=== PATIENT | female | born 1990 | race Caucasian/White ===

== ENCOUNTER 2016-12-26 11:01 | Outpatient (CLI) | payer MEDICAID ==
[2016-12-26 11:26] VITALS: BP 140/68; PULSE 148; RESP 18; TEMP 97.7
[2016-12-26] MEDS ORDERED: LACTATED RINGERS 1,000 ML IV SCH (11:45)
[2016-12-26 11:51] LABS: Appearance,Urine Clear (Clear); Bacteria,Urine Rare /hpf; Bilirubin,Urine Negative (Negative); Glucose,Urine (UA) Negative (Negative); Ketones,Urine Negative (Negative); Leukocyte Esterase,Urine Trace (Negative); Nitrite,Urine Negative (Negative); Particle Count 2151; Protein,Urine Negative (Negative); Specific Gravity,Urine 1.005 (1.001-1.035); Squamous Epithelial Cell,Urine 1 /hpf (0-4); UA Billing (MACRO vs. MICRO) MICRO; Urobilinogen,Urine <2.0 mg/dL (<2.0); WBC,Urine 1 /hpf (0-5)
--- NOTE | 2017-01-13 16:18 | P.MSEPDOC ---
Presenting Problems - Arrival Data Date of Arrival on Unit: 12/26/16 Time of Arrival on Unit: 11:05 Mode of Transport: Ambulatory - Complaint OB-Reason for Admission/Chief Complaint: PIH Comment: visual disturbance, headache, nausea vomitting x days Medical History - Information : 2 Para: 1 Term: 1 : 0 Abortions: Spontaneous or Elective: 0 Number of Living Children: 1 - Gestational Age Gestational Age by EM (wks/days): 22 Weeks and 2 Days Review of Systems - Review of Systems Constitutional: No problems Breast: No problems ENT: No problems Cardiovascular: No problems Respiratory: No problems Gastrointestinal: No problems Genitourinary: No problems Musculoskeletal: No problems Neurological: No problems, Dizziness Skin: No problems Vital Signs - Temperature Temperature: 97.7 F Temperature Source: Temporal Artery Scan - Pulse Right Pulse Rate: 148 Pulse Assessment Method: Automatic Cuff - Respirations Respiratory Rate: 18 Oxygen Delivery Method: Room Air O2 Sat by Pulse Oximetry: 97 - Blood Pressure Right Arm Blood Pressure: 140/68 Blood Pressure Mean: 92 Blood Pressure Source: Automatic Cuff Medical Screen Scoring (Pre) - Cervical Exam Dilation: Exam Deferred Effacement: Exam Deferred Membranes: Intact - Uterine Contractions Frequency: N/A - Maternal Vital Signs Maternal Temperature: N/A Maternal Blood Pressure: N/A Signs of Preeclampsia: Headache = 1, Nausea/Vomiting = 1, Visual Disturbance = 1 Maternal Respirations: N/A - Maternal Trauma Maternal Trauma: N/A - Assessment Heart Rate - NICHD Category: Category I (Normal) = 0 - Total Score Total Score (Pre): 3 - Level of Risk Level of Risk: Low (0-5) Physician Notification (Post) - Physician Notified Physician/Practitioner Notified:: Deepika New Order Received: Yes (d/c follow up in office next week) - Notification Comment Comment: IV hydrate, normal ua, headache improved, b/p improved Disposition - Disposition OB Disposition: Discharge to home, Written follow up instructions reviewed Discharge Date: 12/26/16 Discharge Time: 12:30 I agree with the RN Medical Screening Exam: No Risk & Benefit of care provided described in d/c instruction: No Diagnosis: 22 WEEKS GESTATION OF
== END 2016-12-26 12:30 | disposition home or self-care (01) ==
LOC: MERGE 11:01 → FBPOP 11:01
PROVIDERS: ATTEND Obstetrics & Gynecology
DX: O13.4 Gestational [pregnancy-induced] hypertension without significant proteinuria, complicating childbirth (principal); Z3A.22 22 weeks gestation of pregnancy
CPT/HCPCS: 81001; 96360; 99215

== ENCOUNTER → 2017-01-09 | Outpatient (CLI) | payer MEDICAID ==
[2017-01-09 10:43] LABS: CH 30.5; CHCM 33.1; HCT 35.9 % (34.0-46.0); HDW 2.88; MCH 30.9 pg (25.0-35.0); MCHC 33.4 g/dL (31.0-37.0); MCV 92.6 fL (80.0-100.0); Mean Platelet Volume 6.3; RBC 3.87 m/uL (3.80-5.40); RDW 14.9 % (11.5-15.5); WBC 11.1 k/uL (3.8-10.6)
[2017-01-09 11:07] LABS: Uric Acid 4.3 mg/dL (3.7-7.4)
== END | disposition home or self-care (01) ==
LOC: LABWHC1 09:47
PROVIDERS: ATTEND Obstetrics & Gynecology Obstetrics
DX: O99.89 Other specified diseases and conditions complicating pregnancy, childbirth and the puerperium (principal); R03.0 Elevated blood-pressure reading, without diagnosis of hypertension; Z3A.00 Weeks of gestation of pregnancy not specified
CPT/HCPCS: 36415; 81050; 82575; 84156; 84450; 84460; 84550; 85027

== ENCOUNTER → 2017-01-30 | Outpatient (CLI) | payer MEDICAID | END | disposition home or self-care (01) | LOC: LABWHC1 08:56 | PROVIDERS: ATTEND Obstetrics & Gynecology Obstetrics | DX: Z34.80 Encounter for supervision of other normal pregnancy, unspecified trimester (principal) | CPT/HCPCS: 36415; 82950 ==

== ENCOUNTER 2017-04-09 14:25 | Outpatient (CLI) | payer MEDICAID ==
[2017-04-09 15:23] VITALS: BP 133/75; PULSE 136; RESP 16; TEMP 98.5
--- NOTE | 2017-05-28 10:42 | P.MSEPDOC ---
Presenting Problems - Arrival Data Date of Arrival on Unit: 04/09/17 Time of Arrival on Unit: 14:26 Mode of Transport: Ambulatory Medical History - Information : 2 Para: 1 Term: 1 : 0 Abortions: Spontaneous or Elective: 0 Number of Living Children: 1 - Gestational Age Gestational Age by EM (wks/days): 35 Weeks and 6 Days Vital Signs - Temperature Temperature: 98.5 F Temperature Source: Oral - Pulse Right Brachial Pulse Rate: 136 Pulse Assessment Method: Automatic Cuff - Respirations Respiratory Rate: 16 Oxygen Delivery Method: Room Air O2 Sat by Pulse Oximetry: 97 - Blood Pressure Right Arm Blood Pressure: 133/75 Blood Pressure Mean: 94 Blood Pressure Source: Automatic Cuff Medical Screen Scoring (Post) - Cervical Exam Dilation: 1-3 cm = 1 Effacement: More than 50% = 2 Membranes: Intact - Uterine Contractions Frequency: > 5 minutes apart = 1 Duration: N/A Intensity: N/A - Maternal Vital Signs Maternal Temperature: N/A Maternal Blood Pressure: N/A Signs of Preeclampsia: N/A Maternal Respirations: N/A - Pain Assessment Pain Scale Used: Numeric (1 - 10) Pain Intensity: 0 Pain Management Goal: 0 Pain Behavior: None Exhibited - Maternal Trauma Maternal Trauma: N/A - Assessment Heart Rate: 165 Heart Rate - NICHD Category: Category I (Normal) = 0 NST: Reactive Position: N/A - Total Score Total Score (Post): 4 - Post Treatment Level of Risk Post Treatment Level of Risk: Low (0-5) Physician Notification (Post) - Physician Notified Physician Notified Date: 04/09/17 Physician Notified Time: 15:23 Physician/Practitioner Notified:: Dr Wing Spoke With: Dr Wing New Order Received: Yes - Notification Comment Comment: pt may be discharged home Disposition - Disposition OB Disposition: Discharge to home Discharge Date: 04/09/17 Discharge Time: 15:23 I agree with the RN Medical Screening Exam: Yes Risk & Benefit of care provided described in d/c instruction: Yes Diagnosis: FALSE LABOR BEFORE 37 COMPLETED WEEKS OF GEST, THIRD TRI
== END 2017-04-09 15:37 | disposition home or self-care (01) ==
LOC: FBPOP 14:25
PROVIDERS: ATTEND Obstetrics & Gynecology
DX: O47.03 False labor before 37 completed weeks of gestation, third trimester (principal); Z3A.35 35 weeks gestation of pregnancy
CPT/HCPCS: 59025; 84112; 99213

== ENCOUNTER 2017-04-25 18:52 | Outpatient (CLI) | payer OTHER ==
[2017-04-25] MEDS ORDERED: LACTATED RINGERS 1,000 ML IV ONE (20:30)
[2017-04-25 20:44] VITALS: BP 129/79; PULSE 141; RESP 18; TEMP 98.7
--- NOTE | 2017-06-25 09:17 | P.MSEPDOC ---
Presenting Problems - Arrival Data Date of Arrival on Unit: 04/25/17 Time of Arrival on Unit: 18:52 Mode of Transport: Ambulatory - Complaint OB-Reason for Admission/Chief Complaint: Possible Onset of Labor Comment: contractions getting stronger and more regular since 1629 Medical History - Information : 2 Para: 1 Term: 1 : 0 Abortions: Spontaneous or Elective: 0 Number of Living Children: 1 - Gestational Age Gestational Age by EM (wks/days): 38 Weeks and 1 Days Review of Systems - Review of Systems Constitutional: No problems Breast: No problems ENT: No problems Cardiovascular: No problems Respiratory: No problems Gastrointestinal: No problems Genitourinary: No problems Musculoskeletal: No problems Neurological: No problems Skin: No problems Vital Signs - Temperature Temperature: 98.7 F Temperature Source: Temporal Artery Scan - Pulse Right Brachial Pulse Rate: 141 Pulse Assessment Method: Automatic Cuff - Respirations Respiratory Rate: 18 Oxygen Delivery Method: Room Air - Blood Pressure Right Arm Blood Pressure: 129/79 Blood Pressure Mean: 95 Blood Pressure Source: Automatic Cuff Medical Screen Scoring (Pre) - Cervical Exam Dilation: 4-7 cm = 2 Effacement: More than 50% = 2 Membranes: Intact - Uterine Contractions Frequency: > 5 minutes apart = 1 Duration: N/A Intensity: N/A - Maternal Vital Signs Maternal Temperature: N/A Maternal Blood Pressure: N/A Signs of Preeclampsia: N/A Maternal Respirations: N/A - Pain Assessment Pain Location and Character: Abdomen Pain Scale Used: Numeric (1 - 10) Pain Intensity: 5 Pain Description: *Acute Pain Radiation Location: none Pain Frequency: Intermittent Pain Duration: 3 Pain Duration Units: Hours Pain Behavior: Vocalization - Maternal Trauma Maternal Trauma: N/A - Assessment Baseline FHR: 160 Heart Rate - NICHD Category: Category I (Normal) = 0 NST: Reactive Position: N/A Station: N/A - Total Score Total Score (Pre): 5 - Level of Risk Level of Risk: Low (0-5) Physician Notification (Pre) - Physician Notified Physician Notified Date: 04/25/17 Physician Notified Time: 19:25 Physician/Practitioner Notifed:: Dr. Godfrey Spoke With: Dr. Godfrey New Order Received: Yes - Notification Comment Comment: recheck cervix in one hour, if no change may discharge home Medical Screen Scoring (Post) - Cervical Exam Dilation: 4-7 cm = 2 Effacement: More than 50% = 2 Membranes: Intact - Uterine Contractions Frequency: > 5 minutes apart = 1 Duration: > 40 seconds = 2 Intensity: N/A - Maternal Vital Signs Maternal Temperature: N/A Maternal Blood Pressure: N/A Signs of Preeclampsia: N/A Maternal Respirations: N/A - Pain Assessment Pain Location and Character: Abdomen Pain Scale Used: Numeric (1 - 10) Pain Intensity: 3 Pain Description: *Acute Pain Radiation Location: none Pain Frequency: Intermittent Pain Duration: 60 Pain Duration Units: Minutes Pain Behavior: Vocalization - Maternal Trauma Maternal Trauma: N/A - Assessment Heart Rate: 160 Heart Rate - NICHD Category: Category I (Normal) = 0 NST: Reactive Position: N/A Station: N/A - Total Score Total Score (Post): 7 Physician Notification (Post) - Physician Notified Physician Notified Date: 04/25/17 Physician Notified Time: 20:19 Physician/Practitioner Notified:: Dr. Godfrey Spoke With: Dr. Godfrey New Order Received: Yes - Notification Comment Comment: hydrate pt with bolus of 1 liter of LR I agree with the RN Medical Screening Exam: Yes Risk & Benefit of care provided described in d/c instruction: Yes Diagnosis: FALSE LABOR AT OR AFTER 37 COMPLETED WEEKS OF GESTATION
== END 2017-04-25 21:13 | disposition home or self-care (01) ==
LOC: FBPOP 18:52
PROVIDERS: ATTEND Obstetrics & Gynecology Obstetrics
DX: O47.1 False labor at or after 37 completed weeks of gestation (principal); Z3A.38 38 weeks gestation of pregnancy
CPT/HCPCS: 59025; 96360; G0463; 99214

== ENCOUNTER 2017-04-27 13:22 | Inpatient (IN) | payer OTHER ==
[2017-04-27] MEDS ORDERED: METHYLERGONOVINE 0.2 MG/ML 1 ML AMP IM PRN (14:07)
[2017-04-27] MEDS ORDERED: OXYTOCIN 10 UNIT/ML 1 ML VIAL IM PRN (14:07)
[2017-04-27] MEDS ORDERED: CARBOPROST TROMETHAMINE 250 MCG/ML 1 ML AMP IM PRN (14:07)
[2017-04-27] MEDS ORDERED: TERBUTALINE 1 MG/ML VIAL SQ PRN (14:07)
[2017-04-27] MEDS ORDERED: LIDOCAINE 1% (PF) 10 MG/ML (30 ML SDV) SQ PRN (14:07)
[2017-04-27] MEDS ORDERED: OXYTOCIN 20 UNITS/1000 ML NS 1,000 ML IV SCH ×2 (14:15→21:00)
[2017-04-27 14:36] VITALS: BMI 33.4
[2017-04-27] MEDS: LACTATED RINGERS 1,000 ML IV SCH ×2 (14:42→18:36)
[2017-04-27 14:50] LABS: Basophils % (A) 0 %; Eosinophils # (A) 0.1 k/uL (0-0.7); Eosinophils % (A) 1 %; HCT 36.8 % (34.0-46.0); HGB 12.9 gm/dL (11.4-16.0); Lymphocytes # (A) 1.3 k/uL (1.0-4.8); Lymphocytes % (A) 15 %; MCHC 35.2 g/dL (31.0-37.0); MCV 90.8 fL (80.0-100.0); Mean Platelet Volume 6.6; Monocytes # (A) 0.5 k/uL (0-1.0); Monocytes % (A) 6 %; Neutrophils # (A) 6.6 k/uL (1.3-7.7); Neutrophils % (A) 77 %; Platelet Count 284 k/uL (150-450); RBC 4.05 m/uL (3.80-5.40); RDW 15.5 % (11.5-15.5); WBC 8.6 k/uL (3.8-10.6)
[2017-04-27] MEDS ORDERED: fentaNYL (PF) 50 MCG/ML 5 ML AMP ONE (18:20)
[2017-04-27] MEDS ORDERED: SODIUM CHLORIDE 0.9% 100 ML BAG ONE (18:20)
[2017-04-27] MEDS ORDERED: BUPIVACAINE (PF) 0.25% 30 ML VIAL ONE (18:20)
[2017-04-27] MEDS ORDERED: BUPIVACAINE (PF) 0.25% 25 ML, fentaNYL (PF) 200 MCG in SODIUM CHLORIDE 0.9% 71 ML EPIDURAL ONE (19:11)
--- NOTE | 2017-04-27 20:20 | P.HPOB ---
History of Present Illness H&P Date: 04/27/17 Chief Complaint: Spontaneous rupture of membranes This is a 27-year-old 2 para 1001 woman with an estimated due date of who presents at 38 weeks gestation with spontaneous rupture of membranes. Her has been uncomplicated. She had a gush of clear fluid at approximately 1 PM. She presented to labor and delivery triage where rupture of membranes was confirmed. She was found to be 3+ centimeters dilated however not actively steve. Obstetric history is significant for a previous normal spontaneous vaginal delivery in 2014 complicated by -induced hypertension. This is a 8 lbs. 6 oz. female infant. She has not had hypertension with this . Laboratory data: Blood type O positive, antibody screen negative, rubella immune , VDRL nonreactive, hepatitis B surface antigen negative, HIV negative, group B strep negative, glucose tolerance testing within normal limits. Review of Systems All systems: negative Past Medical History Past Medical History: No Reported History Additional Past Medical History / Comment(s): gestational HTN with previous History of Any Multi-Drug Resistant Organisms: None Reported Additional Past Surgical History / Comment(s): carpal tunnel left wrist Past Anesthesia/Blood Transfusion Reactions: No Reported Reaction Past Psychological History: Anxiety, No Psychological Hx Reported Smoking Status: Never smoker Past Alcohol Use History: None Reported Past Drug Use History: None Reported - Past Family History Father Family Medical History: Hypertension Mother Family Medical History: Hypertension Medications and Allergies Home Medications Medication Instructions Recorded Confirmed Type Phc-Fmje-Vvacr Acid 1 each PO DAILY 10/17/13 04/27/17 History [-U Capsule] Ferrous Sulfate [Iron] 325 mg PO DAILY 04/25/17 04/27/17 History Allergies Allergy/AdvReac Type Severity Reaction Status Date / Time No Known Allergies Allergy Verified 04/27/17 13:38 Exam - Vital Signs Vital signs: Vital Signs Temp Pulse Resp BP Pulse Ox 04/27/17 14:32 98.6 F 126 H 16 141/82 98 04/27/17 14:06 98.6 F 129 H 16 141/82 98 04/27/17 14:00 98.6 F 129 H 16 141/82 Intake and Output 04/27/17 04/27/17 04/27/17 06:59 14:59 22:59 Other: Weight 91.172 kg Patient Weight 04/28/17 06:59 Weight 91.172 kg Upon my initial evaluation patient is resting comfortably with an epidural anesthetic. Her cervix is completely dilated and the vertex is in the 0 station. heart tones are reassuring by external monitoring. She is steve every 3 minutes. Results Result Diagrams: 04/27/17 14:30 Assessment and Plan (1) Spontaneous rupture of membranes Current Visit: Yes Status: Acute Code(s): NBJ4128 - SNOMED Code(s): 593755447 (2) 38 weeks gestation of Current Visit: Yes Status: Acute Code(s): Z3A.38 - 38 WEEKS GESTATION OF SNOMED Code(s): 25822866 Plan: This is a 27-year-old 2 para 1 woman who presents at 38+ weeks gestation with spontaneous rupture of membranes. Labor has been induced with Pitocin and she is comfortable with an epidural. She is currently completely dilated and will commenced pushing. status is reassuring by external monitoring. I anticipate normal spontaneous vaginal delivery.
[2017-04-27] MEDS ORDERED: HYDROCORTISONE 2.5% RECTAL CREAM 30 GM TUBE RECTAL PRN (20:57)
[2017-04-27] MEDS ORDERED: SIMETHICONE 80 MG CHEWABLE PO PRN (20:57)
[2017-04-27] MEDS ORDERED: LANOLIN CREAM 5 GM TUBE TOPICAL PRN (20:57)
[2017-04-27] MEDS ORDERED: BENZOCAINE/MENTHOL SPRAY 1 GM/SPRAY AEROSOL TOPICAL PRN (20:57)
[2017-04-27] MEDS ORDERED: WITCH HAZEL 1 EACH MED..PAD TOPICAL PRN (20:57)
[2017-04-27] MEDS ORDERED: ZOLPIDEM 5 MG TAB PO PRN (20:57)
[2017-04-27] MEDS ORDERED: ACETAMINOPHEN TAB 325 MG TAB PO PRN (20:57)
[2017-04-27] MEDS ORDERED: diphenhydrAMINE 25 MG CAP PO PRN (20:57)
[2017-04-27] MEDS ORDERED: Acetaminophen-Codeine 300-30mg TAB PO PRN (20:57)
[2017-04-27] MEDS ORDERED: diphenhydrAMINE 50 MG CAP PO PRN (20:57)
[2017-04-27] MEDS ORDERED: diphenhydrAMINE 50 MG/ML 1 ML VIAL IVP PRN ×2 (20:57)
--- NOTE | 2017-04-27 20:57 | P.PROBDLV ---
Vaginal Delivery Note - . Vaginal Delivery Note: Findings: Male infant in the vertex right occiput anterior position with Apgars of 9 at 1 minute and 9 at 5 minutes weighing 8 lbs. 10 oz., 3905 g. Intact, three-vessel cord placenta. Left labial laceration and first-degree perineal laceration. EBL 150 mL's. Delivery summary: This is a 27 year old 2 para 1 woman who presented at 38-3/7 weeks gestation with spontaneous rupture of membranes. Following admission Pitocin induction of labor was undertaken. She did progress from 3 cm to 6+ centimeters at which time she received an epidural anesthetic. Rupture of membranes was at approximately 1300 and she reached complete cervical dilation by 2005. She had pelvic pressure and urge to push. heart tones were stable throughout the first stage of labor. After an approximately 30 minute second stage of labor the head was at which time she was repositioned, prepped and draped in the dorsal modified were Edie position. With additional maternal effort the head delivered from the right occiput anterior position. The nose and mouth were bulb suctioned. The anterior followed by the posterior shoulders were delivered without difficulty. The rest the infant was delivered onto the field and placed onto the maternal abdomen. The cord was clamped and cut. Apgars were 9 at 1 minute and 9 at 5 minutes and weight was 8 lbs. 10 oz. The perineum was inspected and an asymmetrical first-degree perineal laceration was noted. There was a split in the left labia on adjacent to the clitoral araujo. Both areas were infused with lidocaine. These were repaired with 3-0 Vicryl suture. The rest the vagina was inspected and no further lacerations were noted. An intact, three- vessel cord placenta was delivered after an approximately 6 minute third stage of labor. The uterus was massaged and was noted to be firm. EBL was approximately 150 mL's. Patient received Pitocin following delivery of the placenta. Both mother and infant were doing well post delivery in the room. All counts were correct.
[2017-04-27] MEDS: IBUPROFEN 600 MG TAB PO PRN (21:20)
[2017-04-28] MEDS: IBUPROFEN 600 MG TAB PO PRN ×4 (04:38→23:39)
[2017-04-28] MEDS: SENNOSIDES-DOCUSATE SODIUM 1 EACH TAB PO SCH ×2 (07:56→21:46)
--- NOTE | 2017-04-28 10:02 | P.PNOBGVD ---
Subjective - Subjective Principal diagnosis: PPD 1 Interval history: Pt is doing well . she is ambulating and voiding without difficulty, no n/v and is tolerating a regular diet. she states lochia is moderate. pain is controlled with oral medications. she does desire circumcision for her son. Patient reports: Reports appetite normal, Reports voiding normally, Reports pain well controlled, Reports ambulating normally : doing well Objective - Latest Vital Signs Latest vital signs: Vital Signs Temp Pulse Resp BP Pulse Ox 04/28/17 04:00 97.6 F 92 16 135/76 04/28/17 00:00 95 16 111/54 04/27/17 22:51 111 H 16 124/57 04/27/17 22:21 110 H 16 118/58 04/27/17 21:51 112 H 16 130/76 04/27/17 21:36 100 16 130/61 04/27/17 21:21 106 H 16 135/64 04/27/17 21:06 111 H 16 132/63 04/27/17 20:51 97.5 F L 112 H 124/57 04/27/17 14:32 98.6 F 126 H 16 141/82 98 04/27/17 14:06 98.6 F 129 H 16 141/82 98 04/27/17 14:00 98.6 F 129 H 16 141/82 Intake and Output 04/27/17 04/28/17 04/28/17 22:59 06:59 14:59 Other: # Voids 0 1 - Exam Extremities: Present: normal Abdomen: Present: normal appearance Uterus: Present: firm Assessment and Plan (1) 38 weeks gestation of Current Visit: Yes Status: Acute Code(s): Z3A.38 - 38 WEEKS GESTATION OF SNOMED Code(s): 98859763 (2) Spontaneous rupture of membranes Current Visit: Yes Status: Acute Code(s): [id number] - SNOMED Code(s): 095853434 (3) Normal spontaneous vaginal delivery Narrative/Plan: doing well post . will continue routine post care, and plan for d/c tomorrow am Current Visit: No Status: Acute Code(s): O80 - ENCOUNTER FOR FULL-TERM UNCOMPLICATED DELIVERY SNOMED Code(s): 22593114
[2017-04-29 01:09] VITALS: RESP 16
[2017-04-29] MEDS: IBUPROFEN 600 MG TAB PO PRN (06:13)
[2017-04-29] MEDS: SENNOSIDES-DOCUSATE SODIUM 1 EACH TAB PO SCH (07:46)
[2017-04-29 07:52] VITALS: BP 131/73; PULSE 90; TEMP 98
--- NOTE | 2017-04-29 08:26 | P.DS ---
Providers Date of admission: 04/27/17 13:49 Expected date of discharge: 04/29/17 Attending physician: Jyoti Godfrey Primary care physician: Stated None - Discharge Diagnosis(es) (1) 38 weeks gestation of Current Visit: Yes Status: Acute (2) Spontaneous rupture of membranes Current Visit: Yes Status: Acute (3) Normal spontaneous vaginal delivery Current Visit: No Status: Acute Hospital Course: This is a very pleasant 27-year-old 2 para 1001 at 38-3/7 weeks that presented to labor and delivery on 116 with spontaneous rupture of membranes. On initial physical exam she was 3 cm dilated. She was noted to labor and delivery and Pitocin augmentation of labor was started. She progressed through labor eventually getting an epidural and having a spontaneous vaginal delivery of a viable male infant. time of the was 2035, weight of 8 lbs. 10 oz., Apgars of 9 and 9 at one and 5 minutes respectively. Next Patient's course has been uneventful. By day #2 she is ambulating and voiding without difficulty she is tolerating a regular diet without nausea or vomiting. Her lochia is moderate. She states she is breast- feeding without difficulty. She desires discharge home. Plan - Discharge Summary Discharge Rx Participant: No New Discharge Prescriptions: No Action Imv-Nmza-Rcuck Acid [-U Capsule] 1 tab PO DAILY Ferrous Sulfate [Iron] 325 mg PO DAILY Discharge Medication List Wjg-Tble-Kwwjk Acid [-U Capsule] 1 tab PO DAILY 10/17/13 [ History] Ferrous Sulfate [Iron] 325 mg PO DAILY 04/25/17 [History] Follow up Appointment(s)/Referral(s): Jyoti Godfrey DO [Doctor of Osteopathic Medicine] - 4 Weeks Discharge Disposition: HOME SELF-CARE
== END 2017-04-29 12:30 | disposition home or self-care (01) | DRG 775 ==
LOC: FBPOP 13:22 → 4FBP 13:49
PROVIDERS: ADMIT Obstetrics & Gynecology Obstetrics; ATTEND Obstetrics & Gynecology Obstetrics
PROC: 10E0XZZ Delivery of Products of Conception, External Approach (ICD-10-PCS; principal; 2017-04-27)
PROC: 0HQ9XZZ Repair Perineum Skin, External Approach (ICD-10-PCS; 2017-04-27)
PROC: 00HU33Z Insertion of Infusion Device into Spinal Canal, Percutaneous Approach (ICD-10-PCS; 2017-04-27)
PROC: 3E0R3NZ Introduction of Analgesics, Hypnotics, Sedatives into Spinal Canal, Percutaneous Approach (ICD-10-PCS; 2017-04-27)
DX: O70.0 First degree perineal laceration during delivery (principal); Z37.0 Single live birth; Z82.49 Family history of ischemic heart disease and other diseases of the circulatory system; Z86.59 Personal history of other mental and behavioral disorders; Z3A.38 38 weeks gestation of pregnancy
CPT/HCPCS: 59025; 84112; 85025; 88307; 99213

== ENCOUNTER 2018-04-23 14:37 | Emergency (ER) | payer BC, MEDICAID, OTHER ==
[2018-04-23 15:04] VITALS: RESP 18
[2018-04-23] MEDS ORDERED: SODIUM CHLORIDE 0.9% 500 ML 500 ML IV STA (15:42)
--- NOTE | 2018-04-23 15:53 | ED ---
General Adult HPI - General Chief complaint: Chest Pain Stated complaint: Chest tightness Time Seen by Provider: 04/23/18 14:50 Source: patient, RN notes reviewed Mode of arrival: ambulatory Limitations: no limitations - History of Present Illness Initial comments: This is a 28-year-old female presents emergency Department with a past medical history significant for sinus tachycardia. Patient states normally her heart rates between 110 and occasionally gets up to 1:30. Patient states today she comes in because she is feeling some palpitations that last couple of seconds and it takes her breath away for that one or 2 seconds. Patient states this happen multiple times a day and she decided come down to get worked up. Patient denies any thyroid problems. Patient denies any drug use. Patient denies any swelling or calf tenderness. Patient denies any recent fever chills or cough. Patient denies any chest pain. She states her chest is uncomfortable when she feels a palpitation but that's it. Patient denies any lightheadedness dizziness or near syncopal episode. - Related Data Home Medications Medication Instructions Recorded Confirmed Stm-Wzrs-Pwszj Acid 1 tab PO DAILY 10/17/13 04/28/17 [-U Capsule] Ferrous Sulfate [Iron] 325 mg PO DAILY 04/25/17 04/27/17 Allergies Allergy/AdvReac Type Severity Reaction Status Date / Time No Known Allergies Allergy Verified 04/23/18 15:04 Review of Systems ROS Statement: Those systems with pertinent positive or pertinent negative responses have been documented in the HPI. ROS Other: All systems not noted in ROS Statement are negative. Past Medical History Past Medical History: No Reported History Additional Past Medical History / Comment(s): gestational HTN with previous History of Any Multi-Drug Resistant Organisms: None Reported Additional Past Surgical History / Comment(s): carpal tunnel left wrist Past Anesthesia/Blood Transfusion Reactions: No Reported Reaction Past Psychological History: Anxiety Smoking Status: Never smoker Past Alcohol Use History: None Reported Past Drug Use History: None Reported - Past Family History Father Family Medical History: Hypertension Mother Family Medical History: Hypertension General Exam - General Exam Comments Initial Comments: GENERAL: Patient is well-developed and well-nourished. Patient is nontoxic and well- hydrated and is in no acute distress. ENT: Neck is soft and supple. No significant lymphadenopathy is noted. There is no thyroid enlargement and no masses were felt. EYES: The sclera were anicteric and conjunctiva were pink and moist. Extraocular movements were intact and pupils were equal round and reactive to light. Eyelids were unremarkable. PULMONARY: Unlabored respirations. Good breath sounds bilaterally. No audible rales rhonchi or wheezing was noted. CARDIOVASCULAR: There is a regular rate and rhythm without any murmurs gallops or rubs. ABDOMEN: Soft and nontender with normal bowel sounds. No palpable organomegaly was noted. There is no palpable pulsatile mass. SKIN: Skin is clear with no lesions or rashes and otherwise unremarkable. NEUROLOGIC: Patient is alert and oriented x3. Cranial nerves II through XII are grossly intact. Motor and sensory are also intact. Normal speech, volume and content. Symmetrical smile. MUSCULOSKELETAL: Normal extremities with adequate strength and full range of motion. No lower extremity swelling or edema. No calf tenderness. LYMPHATICS: No significant lymphadenopathy is noted PSYCHIATRIC: Normal psychiatric evaluation. Limitations: no limitations Course Vital Signs 04/23/18 04/23/18 15:02 15:49 Temperature 98.1 F Pulse Rate 101 H 90 Respiratory 18 18 Rate Blood Pressure 172/99 125/85 O2 Sat by Pulse 99 100 Oximetry Medical Decision Making - Medical Decision Making EKG shows sinus tachycardia at 108 bpm AR interval 146 dresses 90 QT interval 340 QTC is 455. Patient's EKG shows no ST segment elevation or depression or T wave abnormalities are noted. Patient had some episodes while in the emergency department and on the rhythm strip it showed PACs. - Lab Data Result diagrams: 04/23/18 15:30 04/23/18 15:30 Lab Results 04/23/18 04/23/18 04/23/18 Range/Units 15:30 15:30 15:30 WBC 7.8 (3.8-10.6) k/uL RBC 4.75 (3.80-5.40) m/uL Hgb 14.1 (11.4-16.0) gm/dL Hct 41.3 (34.0-46.0) % MCV 86.9 (80.0-100.0) fL MCH 29.7 (25.0-35.0) pg MCHC 34.2 (31.0-37.0) g/dL RDW 13.7 (11.5-15.5) % Plt Count 337 (150-450) k/uL Neutrophils % 58 % Lymphocytes % 35 % Monocytes % 5 % Eosinophils % 1 % Basophils % 0 % Neutrophils # 4.5 (1.3-7.7) k/uL Lymphocytes # 2.7 (1.0-4.8) k/uL Monocytes # 0.4 (0-1.0) k/uL Eosinophils # 0.1 (0-0.7) k/uL Basophils # 0.0 (0-0.2) k/uL PT (9.0-12.0) sec INR (<1.2) APTT (22.0-30.0) sec Sodium 140 (137-145) mmol/L Potassium 4.3 (3.5-5.1) mmol/L Chloride 104 (98-107) mmol/L Carbon Dioxide 27 (22-30) mmol/L Anion Gap 9 mmol/L BUN 12 (7-17) mg/dL Creatinine 0.80 (0.52-1.04) mg/dL Est GFR (CKD-EPI)AfAm >90 (>60 ml/min/1.73 sqM) Est GFR (CKD-EPI)NonAf >90 (>60 ml/min/1.73 sqM) Glucose 89 (74-99) mg/dL Calcium 9.9 (8.4-10.2) mg/dL Magnesium 1.9 (1.6-2.3) mg/dL Total Bilirubin 0.7 (0.2-1.3) mg/dL AST 28 (14-36) U/L ALT 33 (9-52) U/L Alkaline Phosphatase 98 (38-126) U/L Total Creatine Kinase 204 H (30-135) U/L CK-MB (CK-2) 1.2 (0.0-2.4) ng/mL CK-MB (CK-2) Rel Index 0.6 Troponin I <0.012 (0.000-0.034) ng/mL Total Protein 7.8 (6.3-8.2) g/dL Albumin 4.8 (3.5-5.0) g/dL TSH 2.220 (0.465-4.680) mIU/L Free T4 1.33 (0.78-2.19) ng/dL 04/23/18 Range/Units 15:30 WBC (3.8-10.6) k/uL RBC (3.80-5.40) m/uL Hgb (11.4-16.0) gm/dL Hct (34.0-46.0) % MCV (80.0-100.0) fL MCH (25.0-35.0) pg MCHC (31.0-37.0) g/dL RDW (11.5-15.5) % Plt Count (150-450) k/uL Neutrophils % % Lymphocytes % % Monocytes % % Eosinophils % % Basophils % % Neutrophils # (1.3-7.7) k/uL Lymphocytes # (1.0-4.8) k/uL Monocytes # (0-1.0) k/uL Eosinophils # (0-0.7) k/uL Basophils # (0-0.2) k/uL PT 10.2 (9.0-12.0) sec INR 0.9 (<1.2) APTT 25.9 (22.0-30.0) sec Sodium (137-145) mmol/L Potassium (3.5-5.1) mmol/L Chloride (98-107) mmol/L Carbon Dioxide (22-30) mmol/L Anion Gap mmol/L BUN (7-17) mg/dL Creatinine (0.52-1.04) mg/dL Est GFR (CKD-EPI)AfAm (>60 ml/min/1.73 sqM) Est GFR (CKD-EPI)NonAf (>60 ml/min/1.73 sqM) Glucose (74-99) mg/dL Calcium (8.4-10.2) mg/dL Magnesium (1.6-2.3) mg/dL Total Bilirubin (0.2-1.3) mg/dL AST (14-36) U/L ALT (9-52) U/L Alkaline Phosphatase (38-126) U/L Total Creatine Kinase (30-135) U/L CK-MB (CK-2) (0.0-2.4) ng/mL CK-MB (CK-2) Rel Index Troponin I (0.000-0.034) ng/mL Total Protein (6.3-8.2) g/dL Albumin (3.5-5.0) g/dL TSH (0.465-4.680) mIU/L Free T4 (0.78-2.19) ng/dL Disposition Clinical Impression: PAC (premature atrial contraction) Disposition: HOME SELF-CARE Instructions: Premature Atrial Contractions (ED) Is patient prescribed a controlled substance at d/c from ED?: No Referrals: Earlene Ching DO [Primary Care Provider] - 1-2 days Time of Disposition: 16:47
[2018-04-23 15:58] LABS: Basophils % (A) 0 %; Eosinophils # (A) 0.1 k/uL (0-0.7); Eosinophils % (A) 1 %; HCT 41.3 % (34.0-46.0); HGB 14.1 gm/dL (11.4-16.0); Lymphocytes # (A) 2.7 k/uL (1.0-4.8); Lymphocytes % (A) 35 %; MCH 29.7 pg (25.0-35.0); MCHC 34.2 g/dL (31.0-37.0); MCV 86.9 fL (80.0-100.0); Mean Platelet Volume 6.1; Monocytes # (A) 0.4 k/uL (0-1.0); Monocytes % (A) 5 %; Neutrophils # (A) 4.5 k/uL (1.3-7.7); Neutrophils % (A) 58 %; Platelet Count 337 k/uL (150-450); RBC 4.75 m/uL (3.80-5.40); RDW 13.7 % (11.5-15.5); WBC 7.8 k/uL (3.8-10.6)
[2018-04-23 16:07] LABS: INR 0.9 (<1.2); Partial Thromboplastin Time 25.9 sec (22.0-30.0); Prothrombin Time 10.2 sec (9.0-12.0)
[2018-04-23 16:10] LABS: ALT 33 U/L (9-52); AST 28 U/L (14-36); Albumin 4.8 g/dL (3.5-5.0); Alkaline Phosphatase 98 U/L (38-126); Anion Gap 9 mmol/L; Blood Urea Nitrogen 12 mg/dL (7-17); Calcium 9.9 mg/dL (8.4-10.2); Carbon Dioxide 27 mmol/L (22-30); Chloride 104 mmol/L (98-107); Glucose 89 mg/dL (74-99); Magnesium 1.9 mg/dL (1.6-2.3); Potassium 4.3 mmol/L (3.5-5.1); Sodium 140 mmol/L (137-145); Total Bilirubin 0.7 mg/dL (0.2-1.3); Total Protein 7.8 g/dL (6.3-8.2)
--- NOTE | 2018-04-23 16:11 | XR ---
EXAMINATION TYPE: XR chest 2V DATE OF EXAM: 04/23/2018 COMPARISON: NONE HISTORY: Dysrhythmia TECHNIQUE: Frontal and lateral views of the chest are obtained. FINDINGS: There is no focal air space opacity, pleural effusion, or pneumothorax seen. The cardiac silhouette size is within normal limits. The osseous structures are intact. There are overlying car diac leads. IMPRESSION: No acute cardiopulmonary process.
[2018-04-23 16:21] LABS: Creatine Kinase 204 U/L (30-135)
[2018-04-23 16:26] LABS: T4, Free (Free Thyroxine) 1.33 ng/dL (0.78-2.19)
[2018-04-23 16:33] LABS: Creatine Kinase MB 1.2 ng/mL (0.0-2.4); Troponin I <0.012 ng/mL (0.000-0.034)
[2018-04-23 17:03] VITALS: BP 132/79; PULSE 86; TEMP 97.6
== END 2018-04-23 17:03 | disposition home or self-care (01) ==
LOC: EC 14:37
DX: I49.1 Atrial premature depolarization (principal)
CPT/HCPCS: 36415; 71046; 80053; 82550; 82553; 83735; 84439; 84443; 84484; 85025; 85610; 85730; 93005; 96360; 99285

== ENCOUNTER → 2018-08-10 | Outpatient (CLI) | payer BC ==
--- NOTE | 2018-08-11 08:45 | US ---
EXAMINATION TYPE: US thyroid st tissue head/neck DATE OF EXAM: 08/10/2018 COMPARISON: NONE CLINICAL HISTORY: E06.3 Autoimmune Thyroiditis. on synthroid meds for 1 week GLAND SIZE: Right Lobe: 4.9 x 1.7 x 1.6 cm Overall Parenchyma: heterogenous Left Lobe: 4.7 x 1.8 x 1.6 cm Overall Parenchyma: heterogeneous Isthmus Thickness: 0.3 cm NODULES RIGHT: # of nodules measured on right: 0 LEFT: # of nodules measured on left: 0 ISTHMUS: # of nodules measured in the isthmus: 0 Bilateral neck scanned, no evidence of lymphadenopathy. IMPRESSION: Prominent size of the diffusely heterogenous thyroid gland in keeping with this patient's history of thyroiditis. No current hypervascularity nor discrete measurable nodule. No surrounding adenopathy.
== END | disposition home or self-care (01) ==
LOC: RADUSWWP 15:33
PROVIDERS: ATTEND Family Medicine
DX: E06.3 Autoimmune thyroiditis (principal)
CPT/HCPCS: 76536

== ENCOUNTER → 2019-04-20 | Outpatient (CLI) | payer MEDICAID ==
[2019-04-20 18:55] LABS: T4, Free (Free Thyroxine) 1.4 ng/dL (0.80-1.80)
== END | disposition home or self-care (01) ==
LOC: LABWHC1 13:43
PROVIDERS: ATTEND Internal Medicine
DX: E06.3 Autoimmune thyroiditis (principal)
CPT/HCPCS: 36415; 84439; 84443; 84481; 86376

== ENCOUNTER → 2019-12-13 | Outpatient (CLI) | payer MEDICAID ==
[2019-12-13 19:15] LABS: T4, Free (Free Thyroxine) 1.2 ng/dL (0.80-1.80)
== END | disposition home or self-care (01) ==
LOC: LABWHC1 13:33
PROVIDERS: ATTEND Physician Assistant
DX: E06.3 Autoimmune thyroiditis (principal)
CPT/HCPCS: 36415; 82607; 84439; 84443; 84481

== ENCOUNTER → 2020-01-26 | Outpatient (CLI) | payer MEDICAID | END | disposition home or self-care (01) | LOC: LABWHC1 11:27 | PROVIDERS: ATTEND Pediatrics Pediatric Infectious Diseases | DX: Z03.818 Encounter for observation for suspected exposure to other biological agents ruled out (principal) | CPT/HCPCS: U0003; C9803 ==

== ENCOUNTER → 2020-05-30 | Outpatient (CLI) | payer MEDICAID ==
[2020-05-30 15:54] LABS: T4, Free (Free Thyroxine) 1.1 ng/dL (0.80-1.80)
== END | disposition home or self-care (01) ==
LOC: LABWHC1 09:50
PROVIDERS: ATTEND Physician Assistant
DX: E06.3 Autoimmune thyroiditis (principal)
CPT/HCPCS: 36415; 84439; 84443; 84481

== ENCOUNTER → 2020-11-26 | Outpatient (CLI) | payer MEDICAID ==
[2020-11-26 15:56] LABS: T4, Free (Free Thyroxine) 1.3 ng/dL (0.80-1.80)
== END | disposition home or self-care (01) ==
LOC: LABWHC1 08:38
PROVIDERS: ATTEND Physician Assistant
DX: E06.3 Autoimmune thyroiditis (principal)
CPT/HCPCS: 36415; 84439; 84443; 84481

== ENCOUNTER → 2020-12-18 | Outpatient (CLI) | payer MEDICAID ==
[2020-12-18 21:26] LABS: Chol/HDL Ratio 4.19; LDL Cholesterol,Calculated 183.4 mg/dL (0.0-131.0); VLDL Calculation 30.6 mg/dL (5.00-40.00)
== END | disposition home or self-care (01) ==
LOC: LABWHC1 08:44
PROVIDERS: ATTEND Family Medicine
DX: E78.5 Hyperlipidemia, unspecified (principal)
CPT/HCPCS: 36415; 80061

== ENCOUNTER → 2021-09-17 | Outpatient (CLI) | payer MEDICAID ==
--- NOTE | 2021-09-17 14:49 | CT ---
EXAMINATION TYPE: CT abdomen pelvis w con DATE OF EXAM: 09/17/2021 COMPARISON: CT dated 05/27/2021 HISTORY: Rt lower quadrant pain CT DLP: 619.50 mGycm Automated exposure control for dose reduction was used. TECHNIQUE: Helical acquisition of images was performed from the lung bases through the pelvis. CONTRAST: Performed with Oral Contrast and with IV Contrast, patient injected with 70 mL of Isovue 300. FINDINGS: LUNG BASES: No significant abnormality is appreciated. LIVER/GB: No significant abnormality is appreciated. PANCREAS: No significant abnormality is seen. SPLEEN: No significant abnormality is seen. ADRENALS: No significant abnormality is seen. KIDNEYS: Complex cystic area is seen at the upper pole of the left kidney measuring 2.2 x 3.1 x 2.8 c m, incompletely characterized by this CT scan. Unremarkable kidneys otherwise. FREE AIR: No free air is visualized. RETROPERITONEAL ADENOPATHY: None visualized REPRODUCTIVE ORGANS: No gross uterine mass. Bilateral ovarian follicles/cysts, expected for the patie nt's age and suboptimally assessed. Suspected superior vaginal/periurethral cyst measuring 14 mm. URINARY BLADDER: No significant abnormality is seen. PELVIC ADENOPATHY: No pathologically enlarged pelvic lymph nodes. OSSEOUS STRUCTURES: Unremarkable visualized bones. BOWEL: Unremarkable stomach, duodenum and small bowel. Grossly unremarkable colon. Normal appendix. OTHER: Unremarkable abdominal aorta and IVC. No sizable ascites. IMPRESSION: Normal appendix. Complex cystic lesion is seen at the upper pole of the left kidney as described abov e, incompletely characterized by this CT scan and could represent a complex cyst or a renal abscess. Recommend clinical correlation and further workup. Further ultrasound or MRI assessment can be consid ered. Other incidental findings as described above.
== END | disposition home or self-care (01) ==
LOC: RADCTMAIN 12:17
PROVIDERS: ATTEND Family Medicine
DX: N28.1 Cyst of kidney, acquired (principal)
CPT/HCPCS: 74177; Q9967 ×2

== ENCOUNTER → 2021-09-27 | Outpatient (CLI) | payer MEDICAID ==
[2021-09-27 18:04] LABS: African American GFR (CKD) 70.2 (60.0-200.0); Blood Urea Nitrogen 13.7 mg/dL (9.0-27.0); Non-African American GFR(CKD) 60.6 (60.0-200.0)
--- NOTE | 2021-09-28 11:23 | XR ---
Right hip HISTORY: Pain 2 views the right hip Bone mineralization, joint spaces and alignment are maintained. No fracture or dislocation. IMPRESSION: Normal right hip, hip MRI may be of benefit
--- NOTE | 2021-09-28 11:26 | XR ---
Lumbar spine HISTORY: Chronic pain 3 views lumbar spine, correlation CT abdomen pelvis 09/17/2021 Lumbar vertebral bodies show preserved height, alignment, and bone mineralization. Disc spaces are ma intained with exception of some mild disc height loss at L5-S1. IMPRESSION: Mild degenerative disc disease.
== END | disposition home or self-care (01) ==
LOC: LABWHC1 09:37
PROVIDERS: ATTEND Family Medicine
DX: R94.4 Abnormal results of kidney function studies (principal); R10.30 Lower abdominal pain, unspecified
CPT/HCPCS: 36415; 72100; 73502; 82565; 84520

== ENCOUNTER → 2021-10-06 | Outpatient (CLI) | payer MEDICAID ==
[2021-10-06 18:56] LABS: T4, Free (Free Thyroxine) 1.31 ng/dL (0.800-1.800)
== END | disposition home or self-care (01) ==
LOC: LABWHC1 10:57
PROVIDERS: ATTEND Internal Medicine Endocrinology, Diabetes & Metabolism
DX: E06.3 Autoimmune thyroiditis (principal)
CPT/HCPCS: 36415; 84439; 84443; 84481

== ENCOUNTER → 2021-10-06 | Outpatient (CLI) | payer MEDICAID ==
--- NOTE | 2021-10-06 11:34 | MR ---
EXAMINATION TYPE: MR lumbar spine wo con DATE OF EXAM: 10/06/2021 COMPARISON: NONE HISTORY: Lower back pain, RLE radiculopathy. TECHNIQUE: T1 and T2 axial and sagittal images of the lumbar spine are submitted. FINDINGS: There is no abnormal signal seen within the visualized spinal cord or paraspinal soft tissu es. At L1-2 there is no disc herniation, canal stenosis, or foraminal encroachment. No degenerative disc disease. At L2-3 there is no disc herniation, canal stenosis, or foraminal encroachment. No degenerative disc disease. At L3-4 there is no disc herniation, canal stenosis, or foraminal encroachment. No degenerative disc disease. At L4-5 there is no disc herniation, canal stenosis, or foraminal encroachment. No degenerative disc disease. At L5-S1 there is disc desiccation with annular tear and broad-based right paracentral disc protrusio n. Neural foramina remains patent. IMPRESSION: 1. Annular tear and broad-based Central and right paracentral disc protrusion L5-S1. No definite nerv e root contact or foraminal encroachment. Correlate clinically for radiculopathy at this level.
--- NOTE | 2021-10-07 03:54 | MR ---
EXAMINATION TYPE: MR hip RT wo con DATE OF EXAM: 10/06/2021 COMPARISON: None HISTORY: Right hip pain. Multiplanar multiecho imaging of the right hip with no contrast. The bony pelvis is intact. No evidence of a fracture. The proximal femurs show no evidence of fractur e. No evidence of joint effusion. There is slight decreased T1 signal in the subchondral femoral heads bilaterally on the superior aspe ct. The hip joint spaces are fairly normal. The sacroiliac joints are intact. No evidence of a pelvic mass. No free fluid in the pelvis. Hip joint spaces are fairly normal. No sign of joint effusion. No evidence of soft tissue mass of the hip joints. IMPRESSION: Mild decreased T1 signal in the superior subchondral femoral heads. Clinical significance is not lashawn r. This signal pattern on the STIR images is fairly normal and I do not suspect avascular necrosis. T his could be stress related phenomenon. No bone edema.
== END | disposition home or self-care (01) ==
LOC: RADMRIMAIN 06:01
PROVIDERS: ATTEND Family Medicine
DX: M51.16 Intervertebral disc disorders with radiculopathy, lumbar region (principal)
CPT/HCPCS: 72148

== ENCOUNTER → 2021-10-27 | Outpatient (CLI) | payer MEDICAID ==
--- NOTE | 2021-10-27 21:43 | MR ---
EXAMINATION TYPE: MR kidney wo/w con DATE OF EXAM: 10/27/2021 7:30 AM INDICATION: Patient age:Female; 31 years old; Reason for study: N28.1 COMPLEX RENAL CYST;. Renal cyst COMPARISON: CT scan abdomen from 09/17/2021. TECHNIQUE: Multiplanar multi-sequence imaging was performed without contrast. Post contrast imaging was performed. Post IV contrast subtraction images were also submitted for review. IV Contrast: 7 Gadavist FINDINGS: LOWER CHEST: No gross irregularity. ABDOMEN Liver: There is mild hepatic steatosis. Gallbladder and Bile ducts: Intermediate signal intensity along the nondependent portion of the gallb ladder lumen best appreciated on series 801 image 29 measuring 3 mm. Pancreas: Unremarkable. Spleen: Unremarkable. Adrenal glands: Unremarkable. Kidneys: There is a heterogenous signal lesion within the left kidney measuring 3.3 x 3.3 cm which is similar in size given differences in modality to study on 09/17/2021. This lesion is less conspicuous on prior on 05/27/2021 given lack of IV contrast. This lesion is predominantly endophytic, in the ante rior aspect of the upper pole of the left kidney. Postcontrast imaging demonstrates soft tissue nodul arity with enhancement best appreciated on series 1001 image 450 Stomach and Bowel: Unremarkable as visualized. Peritoneum: No evidence of pneumoperitoneum, free fluid, or adenopathy. Vasculature: Unremarkable. No aortic aneurysm. Abdominal wall: Unremarkable. Musculoskeletal: The osseous structures appear intact. IMPRESSION: 1. Left renal lesion measuring up to 3.3 cm concerning for renal cell carcinoma. RENAL Nephrometry S core 7a 2. Suspected 3 mm gallbladder polyp. 3. Hepatic steatosis.
== END | disposition home or self-care (01) ==
LOC: RADMRIMAIN 06:22
PROVIDERS: ATTEND Urology
DX: N28.89 Other specified disorders of kidney and ureter (principal); K76.0 Fatty (change of) liver, not elsewhere classified
CPT/HCPCS: 74183; A9585

== ENCOUNTER → 2021-12-10 | Outpatient (CLI) | payer MEDICAID ==
[2021-12-10 11:10] LABS: Basophils # (A) 0.01 X 10*3/uL (0.00-0.10); Basophils % (A) 0.2 %; Eosinophils # (A) 0.04 X 10*3/uL (0.04-0.35); Eosinophils % (A) 0.7 %; HCT 40.7 % (37.2-46.3); HGB 13.9 g/dL (12.0-15.0); Immature Grans, Automated 0.2 %; Lymphocytes # (A) 2.67 X 10*3/uL (0.90-5.00); Lymphocytes % (A) 44.1 %; MCH 30.3 pg (27.0-32.0); MCHC 34.2 g/dL (32.0-37.0); MCV 88.7 fL (80.0-97.0); Mean Platelet Volume 8.9 fL (9.5-12.2); Monocytes # (A) 0.33 X 10*3/uL (0.20-1.00); Monocytes % (A) 5.4 %; NRBC Per 100 WBC 0 /100 WBCS (0.0-0.0); Neutrophils % (A) 49.4 %; Platelet Count 296 X 10*3/uL (140-440); RBC 4.59 X 10*6/uL (4.10-5.20); RDW 12.4 % (11.5-14.5); WBC 6.06 X 10*3/uL (4.50-10.00)
[2021-12-10 11:19] LABS: % Iron Saturation 17.99 (12.00-45.00); ALT 12 U/L (8-44); AST 20 U/L (13-35); Albumin 4.4 g/dL (3.8-4.9); Albumin/Globulin Ratio 1.76 (1.60-3.17); Alkaline Phosphatase 62 U/L (41-126); BUN/Creat Ratio 11.45 Ratio (12.00-20.00); Blood Urea Nitrogen 12.6 mg/dL (9.0-27.0); Calcium 9.1 mg/dL (8.7-10.3); Carbon Dioxide 23.7 mmol/L (20.0-27.5); Chloride 102 mmol/L (96-109); Chol/HDL Ratio 2.89 Ratio; Ferritin 26.6 ng/mL (10.0-291.0); Globulin 2.5 g/dL (1.6-3.3); Glucose 91 mg/dL (70-110); Iron 99 ug/dL (50-170); Non-African American GFR(CKD) 67.3 (60.0-200.0); Potassium 4.2 mmol/L (3.5-5.5); Sodium 137 mmol/L (135-145); Total Iron Binding Capacity 547 ug/dL (228-460); Total Protein 6.9 g/dL (6.2-8.2)
== END | disposition home or self-care (01) ==
LOC: LABWHC1 07:07
PROVIDERS: ATTEND Family Medicine
DX: Z00.00 Encounter for general adult medical examination without abnormal findings (principal); D50.9 Iron deficiency anemia, unspecified
CPT/HCPCS: 36415; 80053; 80061; 82728; 83540; 83550; 85025

== ENCOUNTER → 2022-01-28 | Outpatient (CLI) | payer MEDICAID ==
--- NOTE | 2022-01-28 16:51 | CT ---
EXAMINATION TYPE: CT ChestAbdPelvis w con CT DLP: 640.3 mGycm, Automated exposure control for dose reduction was used. DATE OF EXAM: 01/28/2022 4:36 PM COMPARISON: None. 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 Follow up Surgery 12/29/2021 follow-up. Technique: Multiple axial images of the chest, abdomen, and pelvis were obtained. Two-dimensional cor onal and sagittal reconstructions were obtained. Contrast used:100cc mL of Isovue 300 with IV Contrast, Oral contrast used: with Oral Contrast Findings: CHEST: LUNGS/ PLEURA: The lung parenchyma appears unremarkable. AIRWAY: Patent and unremarkable. HEART: Size within normal limits. MEDIASTINUM: No gross evidence of adenopathy. VASCULATURE: No aortic aneurysm. MUSCULOSKELETAL: No acute osseous abnormalities. SOFT TISSUES/LYMPH NODES: Unremarkable. LOWER NECK: No significant findings. ABDOMEN: ABDOMEN LIVER: Unremarkable GALLBLADDER AND BILE DUCTS: Unremarkable. PANCREAS: Unremarkable. SPLEEN: Unremarkable. ADRENAL GLANDS: Unremarkable. KIDNEYS AND URETERS: Partial left nephrectomy changes with surgical suture in place. There is nonenha ncing probable scarring within the surgical bed. No evidence of hydronephrosis or renal calculus. PELVIS BLADDER: Unremarkable REPRODUCTIVE: Unremarkable. ABDOMEN & PELVIS STOMACH AND BOWEL: No evidence of bowel obstruction. PERITONEUM: No evidence of pneumoperitoneum or free fluid. VASCULATURE: No evidence of aortic aneurysm. MUSCULOSKELETAL: No acute osseous abnormalities LYMPH NODES: No gross evidence for lymphadenopathy. SOFT TISSUE/ABDOMINAL WALL: Small fat-containing umbilical hernia. IMPRESSION: Postsurgical changes to left kidney with partial nephrectomy. There is nonenhancing surgical bed tiss ue which could represent scar tissue. No evidence of lymphadenopathy. Continued attention on follow-u p imaging.. Consider MRI on subsequent follow-ups with subtraction imaging.
== END | disposition home or self-care (01) ==
LOC: RADCTMAIN 14:11
PROVIDERS: ATTEND Internal Medicine
DX: Z08 Encounter for follow-up examination after completed treatment for malignant neoplasm (principal); Z90.5 Acquired absence of kidney
CPT/HCPCS: 82565; 84520; 71260; 74177; Q9967 ×2

== ENCOUNTER → 2022-07-20 | Outpatient (CLI) | payer MEDICAID ==
--- NOTE | 2022-07-20 18:31 | MR ---
EXAMINATION TYPE: MR brain wo/w con DATE OF EXAM: 07/20/2022 10:06 AM CLINICAL INDICATION:Female, 32 years old with history of R42,C64.2,R51.9; Dizziness, headache, hx armond al cell carcinoma. COMPARISON: None. TECHNIQUE: Multi planar, multi sequence imaging was performed through the brain including: T1, T2, In version recovery, susceptibility weighted imaging and gradient echo imaging and Diffusion weighted im aging. The patient was then given intravenous contrast and multi planar, T1 fat-saturation images wer e obtained. IV Contrast: 7 cc Gadavist FINDINGS: The spence-white junctions, ventricular system, basal cisterns appear unremarkable. Diffusion-weighted imaging shows no evidence of restricted diffusion to suggest acute/subacute infarct. Intracranial art erial flow voids are maintained. Midline structures show no abnormality. The susceptibility weighted images do not reveal any evidence for micro-hemorrhage. After administration of gadolinium, no abnorm al enhancement is seen. The bone marrow signal is within normal limits. Paranasal sinuses and mastoid air cells: No significant paranasal sinus disease. Visualized orbits: Orbital contents are intact. IMPRESSION: No evidence of intracranial mass, acute/subacute infarct, or abnormal enhancement.
== END | disposition home or self-care (01) ==
LOC: RADMRIMAIN 08:37
PROVIDERS: ATTEND Family Medicine
DX: C64.2 Malignant neoplasm of left kidney, except renal pelvis (principal); R42 Dizziness and giddiness; R51.9 Headache, unspecified
CPT/HCPCS: 70553; A9585

== ENCOUNTER → 2022-10-23 | Outpatient (CLI) | payer MEDICAID ==
[2022-10-23 15:48] LABS: % Iron Saturation 25.27 (12.00-45.00); Ferritin 70.5 ng/mL (10.0-291.0)
== END | disposition home or self-care (01) ==
LOC: LABWHC1 10:13
PROVIDERS: ATTEND Family Medicine
DX: D50.9 Iron deficiency anemia, unspecified (principal)
CPT/HCPCS: 36415; 82728; 83540; 83550; 84466

== ENCOUNTER → 2022-12-08 | Outpatient (CLI) | payer MEDICAID ==
[2022-12-08 09:42] LABS: African American GFR (CKD) >90 (>60 ml/min/1.73 sqM); Blood Urea Nitrogen 16 mg/dL (7-17); Non-African American GFR(CKD) 81 (>60 ml/min/1.73 sqM)
--- NOTE | 2022-12-08 10:51 | CT ---
EXAMINATION TYPE: CT abdomen pelvis wo/w con CT DLP: 780.8 mGycm, Automated exposure control for dose reduction was used. DATE OF EXAM: 12/08/2022 10:14 AM COMPARISON: 03/30/2022. CLINICAL INDICATION:Female, 32 years old with history of C65.2 CANCER OF LEFT RENAL PELVIS; Follow up for renal cell cancer. TECHNIQUE: Axial CT of the abdomen and pelvis. Sagittal and coronal reformats were created on a [employer] workstation. Contrast used:100ml mL of Isovue 300 without and with IV Contrast, (none if empty) Oral contrast used: with Oral Contrast (none if empty) FINDINGS: LOWER CHEST: Unremarkable ABDOMEN LIVER: Unremarkable GALLBLADDER AND BILE DUCTS: Unremarkable. PANCREAS: Unremarkable. SPLEEN: Unremarkable. ADRENAL GLANDS: Unremarkable. KIDNEYS AND URETERS: Partial left nephrectomy changes with surgical suture in place. There is nonenha ncing scarring within the surgical bed. No evidence of hydronephrosis or renal calculus. PELVIS BLADDER: Unremarkable REPRODUCTIVE: Intrauterine device seen within the endometrium. ABDOMEN & PELVIS STOMACH AND BOWEL: No evidence of bowel obstruction. PERITONEUM: No evidence of pneumoperitoneum or free fluid. VASCULATURE: No evidence of aortic aneurysm. MUSCULOSKELETAL: No acute osseous abnormalities LYMPH NODES: No gross evidence for lymphadenopathy. SOFT TISSUE/ABDOMINAL WALL: Small fat-containing umbilical hernia. IMPRESSION: Postsurgical changes to left kidney with partial nephrectomy. No evidence for metastatic disease at t his time. No evidence for recurrence. No evidence of lymphadenopathy.
== END | disposition home or self-care (01) ==
LOC: RADCTMAIN 08:20
PROVIDERS: ATTEND Internal Medicine
DX: C65.2 Malignant neoplasm of left renal pelvis (principal); Z85.528 Personal history of other malignant neoplasm of kidney; Z90.5 Acquired absence of kidney
CPT/HCPCS: 82565; 84520; 74178; 36415; Q9967

== ENCOUNTER → 2022-12-12 | Outpatient (CLI) | payer MEDICAID ==
[2022-12-12 14:11] LABS: ALT 18 U/L (8-44); AST 22 U/L (13-35); Albumin 4.8 d/dL (3.8-4.9); Albumin/Globulin Ratio 2.29 Ratio (1.60-3.17); Alkaline Phosphatase 78 U/L (41-126); Blood Urea Nitrogen 13.4 mg/dL (9.0-27.0); Calcium 9.4 mg/dL (8.7-10.3); Carbon Dioxide 25.8 mmol/L (21.6-31.8); Chloride 101 mmol/L (96-109); Chol/HDL Ratio 2.59 Ratio; Globulin 2.1 d/dL (1.6-3.3); Glucose 81 mg/dL (70-110); LDL Cholesterol,Calculated 82.6 mg/dL (0.0-131.0); Potassium 4.2 mmol/L (3.5-5.5); Sodium 139 mmol/L (135-145); T4, Free (Free Thyroxine) 1.38 ng/dL (0.80-1.80); Total Bilirubin 0.7 mg/dL (0.3-1.2); Total Protein 6.9 d/dL (6.2-8.2)
[2022-12-12 14:25] LABS: Basophils # (A) 0.02 X 10*3/uL (0.00-0.10); Basophils % (A) 0.3 %; Eosinophils # (A) 0.04 X 10*3/uL (0.04-0.35); Eosinophils % (A) 0.7 %; HCT 42.7 % (37.2-46.3); HGB 14.8 d/dL (12.0-15.0); Lymphocytes # (A) 1.87 X 10*3/uL (0.90-5.00); Lymphocytes % (A) 31.4 %; MCH 31.1 pg (27.0-32.0); MCHC 34.7 d/dL (32.0-37.0); MCV 89.7 FL (80.0-97.0); Mean Platelet Volume 8.6 FL (9.5-12.2); Monocytes # (A) 0.41 X 10*3/uL (0.20-1.00); Monocytes % (A) 6.9 %; NRBC Per 100 WBC 0 X 10*3/uL (0.00-0.01); Neutrophils # (A) 3.59 X 10*3/uL (1.80-7.70); Neutrophils % (A) 60.4 %; Platelet Count 259 X 10*3/uL (140-440); RBC 4.76 X 10*6/uL (4.10-5.20); RDW 12.5 % (11.5-14.5); WBC 5.95 X 10*3/uL (4.50-10.00)
== END | disposition home or self-care (01) ==
LOC: LABWHC1 08:33
PROVIDERS: ATTEND Family Medicine
DX: Z00.00 Encounter for general adult medical examination without abnormal findings (principal); E55.9 Vitamin D deficiency, unspecified; R73.9 Hyperglycemia, unspecified
CPT/HCPCS: 36415; 80053; 80061; 82306; 83036; 84439; 84443; 85025

== ENCOUNTER → 2023-03-24 | Outpatient (CLI) | payer BC ==
--- NOTE | 2023-03-25 10:55 | MR ---
EXAMINATION TYPE: MR lumbar spine wo/w con DATE OF EXAM: 03/24/2023 COMPARISON: HISTORY: Low left back pain into left leg CONTRAST: 7 mL intravenous Gadavist. TECHNIQUE: Multiplanar, multisequence images of the lumbar spine were acquired. FINDINGS: Cord terminates at the T12-L1 level. Disc heights are preserved. There is disc desiccation L5-S1. Rem aining disc hydration levels are normal. Vertebral body heights are preserved. No spinal canal stenosis present. Mild facet hypertrophy is present L3-4 and L4-5 minimal posterior l ateral thecal sac compression greater on the right. No foraminal stenosis is present. No abnormal enhancement is evident. IMPRESSION: 1. Disc desiccation L5-S1. 2. Mild facet hypertrophy is present lower lumbar spine without stenosis or significant thecal sac co mpression.
== END | disposition home or self-care (01) ==
LOC: RADMRIMAIN 10:57
PROVIDERS: ATTEND Physical Medicine & Rehabilitation
DX: M51.27 Other intervertebral disc displacement, lumbosacral region (principal); M47.26 Other spondylosis with radiculopathy, lumbar region; Z85.528 Personal history of other malignant neoplasm of kidney; Z90.5 Acquired absence of kidney
CPT/HCPCS: 72158; A9585

== ENCOUNTER → 2023-04-16 | Outpatient (CLI) | payer BC ==
[2023-04-16 08:00] LABS: African American GFR (CKD) 81 (>60 ml/min/1.73 sqM); Blood Urea Nitrogen 15 mg/dL (7-17); Non-African American GFR(CKD) 70 (>60 ml/min/1.73 sqM)
== END | disposition home or self-care (01) ==
LOC: LABMAIN 07:04
PROVIDERS: ATTEND Family Medicine
DX: C64.2 Malignant neoplasm of left kidney, except renal pelvis (principal); N18.2 Chronic kidney disease, stage 2 (mild)
CPT/HCPCS: 82565; 84520

== ENCOUNTER → 2023-05-28 | Outpatient (CLI) | payer BC ==
[2023-05-28 11:53] LABS: African American GFR (CKD) 90 (>60 ml/min/1.73 sqM); Blood Urea Nitrogen 15 mg/dL (7-17); Non-African American GFR(CKD) 78 (>60 ml/min/1.73 sqM)
--- NOTE | 2023-05-28 13:01 | CT ---
EXAMINATION: CT CHEST, ABDOMEN AND PELVIS WITHOUT AND WITH IV CONTRAST DATE OF EXAMINATION: 05/28/2023. COMPARISON: CT abdomen and pelvis on 12/08/[address] chest, abdomen and pelvis on 01/28/2022.. INDICATION: Malignant neoplasm of the left renal pelvis. PROCEDURE: Axial CT of the chest, abdomen and pelvis was performed without and with contrast and sa gittal and coronal reformatted images were performed. CT dose lowering techniques were used, to inclu de: automated exposure control, adjustment for patient size, and/or use of iterative reconstruction. 100 mL of Isovue-300 was given intravenously. FINDINGS: CHEST: Mediastinum and hilar regions: There is no axillary, mediastinal or hilar lymphadenopathy. Pleural there are pericardial spaces: There are no pleural or pericardial effusions. LUNGS: The lungs are clear. CARDIOVASCULAR: The thoracic aorta is normal in caliber without evidence of aneurysmal dilation or dissection. ABDOMEN: Liver and Biliary system: Normal. Adrenal glands: Normal. Kidneys and ureters: Surgical changes of prior partial nephrectomy in the upper pole of the left kidn ey with no residual or recurrent disease. Spleen: Normal. Pancreas: Normal. Gallbladder: Normal. Lymph nodes, Peritoneum and mesentery: There is no mesenteric or retroperitoneal lymphadenopathy. Gastrointestinal tract: There are no dilated loops of bowel or free intraperitoneal air. The appe ndix is normal. Aorta/IVC: No aortic aneurysm. IVC normal. Abdominal wall: Normal. PELVIS: Fluid: There is no free fluid in the pelvis. Lymph Nodes: There is no pelvic or inguinal lymphadenopathy.. Urinary bladder: Normal. BONES: There are no osseous destructive lesions.. ADDITIONAL SIGNIFICANT FINDINGS: Left ovarian cyst measures 4.2 x 5.4 cm. IUD appears appropriately positioned.. IMPRESSION: 1. Surgical changes of partial nephrectomy in the upper pole the left kidney with no residual or recu rrent local disease. 2. No evidence of metastatic disease within the chest, abdomen or pelvis.
== END ==
LOC: RADCTMAIN 10:58
PROVIDERS: ATTEND Internal Medicine
DX: C65.2 Malignant neoplasm of left renal pelvis (principal); Z98.890 Other specified postprocedural states; Z90.5 Acquired absence of kidney
CPT/HCPCS: 82565; 84520; 71270; 74178; 36415; Q9967

== ENCOUNTER → 2023-06-20 | Outpatient (CLI) | payer BC ==
[2023-06-20 13:26] LABS: Basophils # (A) 0.03 X 10*3/uL (0.00-0.10); Basophils % (A) 0.3 %; Eosinophils # (A) 0.25 X 10*3/uL (0.04-0.35); Eosinophils % (A) 2.4 %; HCT 42.5 % (37.2-46.3); HGB 14.3 g/dL (12.0-15.0); Lymphocytes # (A) 2.39 X 10*3/uL (0.90-5.00); Lymphocytes % (A) 23.2 %; MCH 31.3 pg (27.0-32.0); MCHC 33.6 g/dL (32.0-37.0); Mean Platelet Volume 8.5 FL (9.5-12.2); Monocytes # (A) 0.53 X 10*3/uL (0.20-1.00); Monocytes % (A) 5.1 %; NRBC Per 100 WBC 0 X 10*3/uL (0.00-0.01); Neutrophils # (A) 7.07 X 10*3/uL (1.80-7.70); Neutrophils % (A) 68.7 %; Platelet Count 274 X 10*3/uL (140-440); RBC 4.57 X 10*6/uL (4.10-5.20); RDW 12.5 % (11.5-14.5)
[2023-06-20 13:57] LABS: % Iron Saturation 26.63 (12.00-45.00); ALT 18 U/L (8-44); AST 22 U/L (13-35); Albumin 4.4 g/dL (3.8-4.9); Albumin/Globulin Ratio 1.76 Ratio (1.60-3.17); Alkaline Phosphatase 95 U/L (41-126); Blood Urea Nitrogen 11.8 mg/dL (9.0-27.0); Calcium 9.3 mg/dL (8.7-10.3); Carbon Dioxide 24.6 mmol/L (21.6-31.8); Chloride 107 mmol/L (96-109); Globulin 2.5 g/dL (1.6-3.3); Glucose 108 mg/dL (70-110); Iron 94 UG/DL (50-170); Sodium 144 mmol/L (135-145); Total Bilirubin 0.5 mg/dL (0.3-1.2); Total Iron Binding Capacity 353 UG/DL (228-460); Total Protein 6.9 g/dL (6.2-8.2)
== END | disposition home or self-care (01) ==
LOC: LABMAIN 07:04
PROVIDERS: ATTEND Internal Medicine
DX: C65.2 Malignant neoplasm of left renal pelvis (principal)
CPT/HCPCS: 80053; 82306; 82728; 83540; 83550; 84466; 85025

== ENCOUNTER → 2023-06-22 | Outpatient (CLI) | payer BC | END | disposition home or self-care (01) | LOC: LABMAIN 08:54 | PROVIDERS: ATTEND Internal Medicine Endocrinology, Diabetes & Metabolism | DX: E03.8 Other specified hypothyroidism (principal) | CPT/HCPCS: 84443 ==

== ENCOUNTER → 2023-08-02 | Outpatient (CLI) | payer BC ==
[2023-08-02 11:16] LABS: Basophils # (A) 0.03 X 10*3/uL (0.00-0.10); Basophils % (A) 0.5 %; Eosinophils # (A) 0.12 X 10*3/uL (0.04-0.35); Eosinophils % (A) 1.9 %; HCT 41.7 % (37.2-46.3); HGB 14.2 g/dL (12.0-15.0); Lymphocytes # (A) 1.93 X 10*3/uL (0.90-5.00); MCH 31.8 pg (27.0-32.0); MCHC 34.1 g/dL (32.0-37.0); MCV 93.5 FL (80.0-97.0); Mean Platelet Volume 8.8 FL (9.5-12.2); NRBC Per 100 WBC 0 X 10*3/uL (0.00-0.01); Neutrophils # (A) 3.64 X 10*3/uL (1.80-7.70); Neutrophils % (A) 58.4 %; Platelet Count 254 X 10*3/uL (140-440); RBC 4.46 X 10*6/uL (4.10-5.20); RDW 11.9 % (11.5-14.5); WBC 6.23 X 10*3/uL (4.50-10.00)
[2023-08-02 11:54] LABS: ALT 13 U/L (8-44); AST 17 U/L (13-35); Albumin 4.4 g/dL (3.8-4.9); Albumin/Globulin Ratio 1.91 Ratio (1.60-3.17); Alkaline Phosphatase 80 U/L (41-126); BUN/Creat Ratio 14.27 Ratio (12.00-20.00); Blood Urea Nitrogen 15.7 mg/dL (9.0-27.0); Calcium 9.4 mg/dL (8.7-10.3); Carbon Dioxide 25.4 mmol/L (21.6-31.8); Chloride 102 mmol/L (96-109); Chol/HDL Ratio 2.59 Ratio; Globulin 2.3 g/dL (1.6-3.3); Glucose 85 mg/dL (70-110); LDL Cholesterol,Calculated 70.7 mg/dL (0.0-131.0); Potassium 4.2 mmol/L (3.5-5.5); Sodium 137 mmol/L (135-145); T4, Free (Free Thyroxine) 1.32 ng/dL (0.80-1.80); Total Bilirubin 0.5 mg/dL (0.3-1.2); Total Protein 6.7 g/dL (6.2-8.2); VLDL Calculation 17.74 mg/dL (5.00-40.00)
== END | disposition home or self-care (01) ==
LOC: LABWHC1 07:00
PROVIDERS: ATTEND Family Medicine
DX: E03.9 Hypothyroidism, unspecified (principal); E78.5 Hyperlipidemia, unspecified; R53.83 Other fatigue
CPT/HCPCS: 36415; 80053; 80061; 83036; 84439; 84443; 84481; 85025

== ENCOUNTER → 2023-08-06 | Outpatient (CLI) | payer BC ==
--- NOTE | 2023-08-06 19:20 | CA ---
Transthoracic Echo Report Name: Henrietta Morris Age: 33 Gender: F : 1990 Exam Date: 08/06/2023 16:46 Exam Location: [facility] Ht (in): 65 Wt (lb): 155 Ordering Physician: Gregorio Soares MD Attending/Referring Phys: Berkley Sanderson PAC [employer] Collections Rep Elba Price RDCS Procedure CPT: Indications: R01.1 Murmur Cardiac Hx: Technical Quality: Excellent Contrast 1: Total Dose (mL): Contrast 2: Total Dose (mL): MEASUREMENTS (Male / Female) Normal Values 2D ECHO LV Diastolic Diameter PLAX 4.2 cm 4.2 - 5.9 / 3.9 - 5.3 cm LV Systolic Diameter PLAX 2.6 cm IVS Diastolic Thickness 1.0 cm 0.6 - 1.0 / 0.6 - 0.9 cm LVPW Diastolic Thickness 0.8 cm 0.6 - 1.0 / 0.6 - 0.9 cm LV Relative Wall Thickness 0.4 RV Internal Dim ED PLAX 3.3 cm LA Systolic Diameter LX 2.7 cm 3.0 - 4.0 / 2.7 - 3.8 cm M-MODE Aortic Root Diameter MM 2.9 cm MV E Point Septal Separation 0.3 cm AV Cusp Separation MM 2.3 cm DOPPLER AV Peak Velocity 146.9 cm/s AV Peak Gradient 8.6 mmHg MV Area PHT 3.4 cm??? Mitral E Point Velocity 103.3 cm/s Mitral A Point Velocity 52.8 cm/s Mitral E to A Ratio 2.0 MV Deceleration Time 225.7 ms TR Peak Velocity 251.0 cm/s TR Peak Gradient 25.2 mmHg Right Ventricular Systolic Press 29.6 mmHg FINDINGS Left Ventricle Left ventricular ejection fraction is estimated at 60-65 %. Left ventricular cavity size normal. Left ventricular wall thickness normal. Normal left ventricular wall motion. Right Ventricle Mild right ventricular dilatation. Right ventricular systolic pressure within normal limits. Right Atrium Normal right atrial size. Left Atrium Normal left atrial size. Mitral Valve Structurally normal mitral valve. No mitral stenosis. No evidence for mitral valve prolapse. Mild mitral regurgitation. Aortic Valve Trileaflet aortic valve. No aortic valve stenosis or regurgitation. Tricuspid Valve Structurally normal tricuspid valve. Mild tricuspid regurgitation. Pulmonic Valve Structurally normal pulmonic valve. Mild pulmonic regurgitation. Pericardium No pericardial effusion. No pleural effusion. Aorta Normal size aortic root and proximal ascending aorta. CONCLUSIONS Preserved LV size and systolic function Mildly enlarged right ventricle Previewed by: Dr. Juanpablo Zamora MD (Electronically Signed) Final Date: 06 August 2023 19:19
== END | disposition home or self-care (01) ==
LOC: RADECHMAIN 16:22
PROVIDERS: ATTEND Family Medicine
DX: I51.7 Cardiomegaly (principal)
CPT/HCPCS: 93306

== ENCOUNTER → 2023-12-14 | Outpatient (CLI) | payer BC ==
[2023-12-14 17:00] LABS: Basophils # (A) 0.02 X 10*3/uL (0.00-0.10); Basophils % (A) 0.2 %; Eosinophils # (A) 0.04 X 10*3/uL (0.04-0.35); Eosinophils % (A) 0.5 %; HCT 44.5 % (37.2-46.3); Lymphocytes # (A) 1.86 X 10*3/uL (0.90-5.00); Lymphocytes % (A) 22.4 %; MCH 31.4 pg (27.0-32.0); MCHC 33.7 g/dL (32.0-37.0); MCV 93.1 FL (80.0-97.0); Mean Platelet Volume 8.8 FL (9.5-12.2); Monocytes # (A) 0.44 X 10*3/uL (0.20-1.00); Monocytes % (A) 5.3 %; NRBC Per 100 WBC 0 X 10*3/uL (0.00-0.01); Neutrophils # (A) 5.91 X 10*3/uL (1.80-7.70); Neutrophils % (A) 71.2 %; Platelet Count 301 X 10*3/uL (140-440); RBC 4.78 X 10*6/uL (4.10-5.20); RDW 11.9 % (11.5-14.5)
[2023-12-14 17:05] LABS: Blood Urea Nitrogen 13.8 mg/dL (9.0-27.0); Iron 63 UG/DL (50-170); Total Iron Binding Capacity 360 UG/DL (228-460)
== END | disposition home or self-care (01) ==
LOC: LABPAT 11:17
PROVIDERS: ATTEND Obstetrics & Gynecology
DX: Z30.2 Encounter for sterilization (principal); E78.5 Hyperlipidemia, unspecified; D50.9 Iron deficiency anemia, unspecified
CPT/HCPCS: 82565; 82728; 83540; 83550; 83695; 84520; 85025; 86141

== ENCOUNTER → 2023-12-15 | Outpatient (CLI) | payer BC ==
[2023-12-15 19:38] LABS: Magnesium 1.9 mg/dL (1.5-2.4)
== END | disposition home or self-care (01) ==
LOC: LABWHC1 13:42
PROVIDERS: ATTEND Family Medicine
DX: N18.2 Chronic kidney disease, stage 2 (mild) (principal)
CPT/HCPCS: 36415; 83735; 83970; 84100

== ENCOUNTER → 2023-12-17 | Outpatient (CLI) | payer BC ==
--- NOTE | 2023-12-17 15:42 | CT ---
EXAMINATION TYPE: CT ChestAbdPelvis w con CT DLP: 1582 mGycm, Automated exposure control for dose reduction was used. DATE OF EXAM: 12/17/2023 3:18 PM COMPARISON: 05/28/2023 CLINICAL INDICATION: Female, 33 years old with history of C65.2 CANCER LEFT RENAL PELVIS; PHH, Hx of L renal cell carcinoma 2021, L partial nephrectomy. Follow up for a drop in GFR level Technique: CT ChestAbdPelvis w con; Multiple axial images were obtained. Two-dimensional coronal and sagittal reconstructions were obtained. Contrast used:100ml mL of Isovue 300 with IV Contrast, Oral contrast used: with Oral Contrast Findings: CHEST: LUNGS/ PLEURA: No focal consolidation, pneumothorax or pleural effusion. AIRWAY: Patent and unremarkable. HEART: Size within normal limits. MEDIASTINUM: No gross evidence of adenopathy. VASCULATURE: No aortic aneurysm. MUSCULOSKELETAL: No acute osseous abnormalities. SOFT TISSUES/LYMPH NODES: Unremarkable. LOWER NECK: No significant findings. ABDOMEN: ABDOMEN LIVER: Unremarkable GALLBLADDER AND BILE DUCTS: Unremarkable. PANCREAS: Unremarkable. SPLEEN: Unremarkable. ADRENAL GLANDS: Unremarkable. KIDNEYS AND URETERS: Postsurgical changes to the left kidney with partial nephrectomy. No evidence fo r recurrent tumor. No adjacent soft tissue mass. No evidence of hydronephrosis or renal calculus. The ureters are unremarkable. PELVIS BLADDER: Unremarkable REPRODUCTIVE: Intrauterine device seen within the endometrium. ABDOMEN & PELVIS STOMACH AND BOWEL: No evidence of bowel obstruction. PERITONEUM: No evidence of pneumoperitoneum or free fluid. VASCULATURE: No evidence of aortic aneurysm. MUSCULOSKELETAL: No acute osseous abnormalities LYMPH NODES: No gross evidence for lymphadenopathy. SOFT TISSUE/ABDOMINAL WALL: Unremarkable IMPRESSION: 1. Post surgical changes to left kidney without evidence for lymphadenopathy or recurrence. 2. IUD in appropriate position.
== END | disposition home or self-care (01) ==
LOC: RADCTMAIN 13:14
PROVIDERS: ATTEND Internal Medicine
DX: C65.2 Malignant neoplasm of left renal pelvis
CPT/HCPCS: 36415; 71260; 74177

== ENCOUNTER 2023-12-23 06:07 | Day surgery (SDC) | payer BC ==
[2023-12-17 15:22] VITALS: BMI 25.4
--- NOTE | 2023-12-22 10:59 | P.HPIHPCON ---
History of Present Illness H&P Date: 12/22/23 Chief Complaint: Desires permanent contraception Ms. Morris is a 33 year old who presents for permanent contraception via laparoscopic bilateral salpingectomy. Consent for Procedure: I have explained the operation/procedure to the patient, including the risks, benefits, side effects, alternative therapies (including not receiving the proposed treatment or service), the likelihood of the patient achieving his/her goals, and potential recuperation problems for the procedure/sedation/analgesia, as well as any blood products, if indicated. I also explained to the patient the risks, benefits and side effects of the alternatives, as well as the risks related to not receiving the proposed procedure, care, treatment, or services. Past Medical History Past Medical History: Cancer, Hyperlipidemia, Thyroid Disorder Additional Past Medical History / Comment(s): gestational HTN with previous , MIGRAINES, KIDNEY CANCER History of Any Multi-Drug Resistant Organisms: None Reported Past Surgical History: Orthopedic Surgery Additional Past Surgical History / Comment(s): carpal tunnel left wrist, LT PARTIAL KIDNEY REMOVED. Past Anesthesia/Blood Transfusion Reactions: No Reported Reaction Smoking Status: Never smoker - Past Family History Father Family Medical History: Hypertension Mother Family Medical History: Hypertension Medications and Allergies Home Medications Medication Instructions Recorded Confirmed Type Atogepant [Qulipta] 60 mg PO DAILY 12/17/23 12/17/23 History Baclofen 10 mg PO DAILY PRN 12/17/23 12/17/23 History Cholecalciferol (Vitamin D3) 50 mcg PO DAILY 12/17/23 12/17/23 History [Vitamin D3 (50 Mcg = 2000 Iu)] Cyanocobalamin [Vitamin B-12] 500 mcg PO DAILY 12/17/23 12/17/23 History FLUoxetine HCL [PROzac] 20 mg PO DAILY 12/17/23 12/17/23 History Levothyroxine Sodium [Synthroid] 25 mcg PO DAILY 12/17/23 12/17/23 History Rizatriptan Benzoate [Rizatriptan] 10 mg PO DIRECTED PRN 12/17/23 12/17/23 History Rosuvastatin Calcium [Crestor] 5 mg PO DAILY 12/17/23 12/17/23 History traZODone HCL [Desyrel] 50 mg PO HS 12/17/23 12/17/23 History Allergies Allergy/AdvReac Type Severity Reaction Status Date / Time No Known Allergies Allergy Verified 12/17/23 15:11 Surgical - Exam Focused physical exam is performed. Patient is alert and oriented. Abdomen is soft, non-tender, and non-distended. Extremities are non-tender and non- edematous. Assessment and Plan Assessment: 33 year old presenting for laparoscopic bilateral salpingectomy for permanent contraception. Plan: Risks, benefits, and alternatives to Laparoscopic Bilateral Salpingectomy are reviewed with the patient including bleeding, infection, and damage to surrounding structures including ovaries, ureters, bowel. We also discussed that this procedure cannot be reversed and she will never again be able to become without IVF. The patient understands these risks and desires to proceed. All questions answered.
[~2023-12-23 06:07] MED LIST: LIDOCAINE 1% (10MG/ML) FOR IV START INTRADERMA PRN; Pre Op ABX Message 1 EACH MISC MISCELLANE ONE; droPERidol 5 MG/2 ML VIAL IVP ONE
[2023-12-23] MEDS: IV FLUID CONTINUATION 1,000 ML IV ONE ×2 (07:00→09:27)
[2023-12-23] MEDS: DEXAMETHASONE SOD PHOSPHATE 4 MG/ML 1 ML VIAL IV ONE (07:10)
[2023-12-23] MEDS: FAMOTIDINE 20 MG/2 ML VIAL IV STA (07:16)
[2023-12-23] MEDS: ONDANSETRON 4 MG/2 ML VIAL IVP STA (07:16)
[2023-12-23] MEDS: SCOPOLAMINE 1 MG/72 HR PATCH TRANSDERM ONE (07:17)
[2023-12-23] MEDS ORDERED: SUCCINYLCHOLINE CHLORIDE 200 MG/10 ML VIAL IV ONE (07:25)
[2023-12-23] MEDS ORDERED: ROCURONIUM 10 MG/ML (5 ML VIAL) IV ONE (07:25)
[2023-12-23] MEDS ORDERED: GLYCOPYRROLATE 0.2 MG/ML 2 ML VIAL ONE (07:25)
[2023-12-23] MEDS ORDERED: fentaNYL (PF) 50 MCG/ML 2 ML AMP ONE (07:25)
[2023-12-23] MEDS ORDERED: LIDOCAINE 1% INJ 10MG/ML (20 ML MDV) ONE (07:25)
[2023-12-23] MEDS ORDERED: NEOSTIGMINE 1 MG/ML 10 ML VIAL ONE (07:25)
[2023-12-23] MEDS ORDERED: MIDAZOLAM 2 MG/2 ML VIAL ONE (07:25)
[2023-12-23] MEDS ORDERED: KETOROLAC 15 MG/ML 1 ML VIAL ONE (07:25)
[2023-12-23] MEDS ORDERED: PROPOFOL 10 MG/ML 20 ML VIAL IV ONE (07:25)
[2023-12-23] MEDS: LACTATED RINGERS 1,000 ML IV SCH (07:26)
[2023-12-23] MEDS: BUPIVACAINE (PF) 0.25% 30 ML VIAL SQ ONE (07:30)
[2023-12-23 08:29] VITALS: TEMP 97
[2023-12-23] MEDS: HYDROmorphone 0.5 MG/0.5 ML SYRINGE IVP PRN (08:34)
--- NOTE | 2023-12-23 08:39 | P.OP ---
Date of Procedure: 12/23/23 Preoperative Diagnosis: 1. Family planning 2. Desires permanent contraception 3. Risk reduction Postoperative Diagnosis: Same Procedure(s) Performed: Laparoscopic Bilateral Salpingectomy Implants: None Anesthesia: LILYA Surgeon: Ananya Ramos Estimated Blood Loss (ml): 5 IV fluids (ml): 450 Urine output (ml): 200 Pathology: other (bilateral fallopian tubes) Condition: stable Disposition: floor Indications for Procedure: Ms. Morris is a 33 year old who presents for permanent contraception with bilateral salpingectomy. Risks, benefits, and alternatives to Laparoscopic Bilateral Salpingectomy are reviewed with the patient including bleeding, infection, and damage to surrounding structures including ovaries, ureters, bowel. We also discussed that this procedure cannot be reversed and she will never again be able to become without IVF. The patient understands these risks and desires to proceed. All questions answered. Operative Findings: Normal appearing pelvis. Uterus sounds to 9 cm. normal bilateral fallopian tubes and ovaries. Description of Procedure: The patient was taken to the OR with IV fluid running and pneumatic compression stockings on both legs. General anesthesia was obtained without difficulty. The patient was placed in the dorsal lithotomy position. Examination under anesthesia revealed a normal-sized, anteverted uterus. The patient was prepared and draped. The bladder was emptied for 200mL. A speculum was used to visualize the cervix, which was grasped with a single-toothed tenaculum and sounded to 9cm. IUD strings were noted at the external cervical os. A uterine manipulator was then introduced. At this time, the speculum was removed from the vagina and attention was turned to the abdominal portion of the procedure. A small incision was made with the scalpel just inferior to the umbicus. The veress needle was introduced into the peritoneal cavity at straight angle without difficulty and placement was confirmed with the saline drop test and low opening pressure. The abdomen was then insuflated to 15mm Hg. A trocar was introduced into this site under direct laparoscopic visualization. The pelvic anatomy was noted as above. Intraabdominal survery revealed lack of any visceral or vascular injury. Addition assist 5mm port sites were created in either lower quadrant. A grapser was used to elevate the left fallopian tube at the level of the fimbriated end. A Ligasure device was then used to sequentially cauterize and cut the fallopian tube to the level of the uterine cornua. This was repeated on the right side. Excellent hemostasis was noted throughout the case. The trocars were removed, abdominal pressure was released. All abdominal incisions were closed with 4-0 Monocryl and skin glue. All remaining instruments were removed from the vagina. All sponge and instrument counts were correct times two. The patient was taken to recovery in stable condition.
[2023-12-23 09:26] VITALS: RESP 20
[2023-12-23 10:00] VITALS: BP 103/67; PULSE 67
== END 2023-12-23 10:03 | disposition home or self-care (01) ==
LOC: OR 06:07
PROVIDERS: ATTEND Obstetrics & Gynecology
DX: Z30.2 Encounter for sterilization
CPT/HCPCS: 81025; 88302

== ENCOUNTER → 2024-02-24 | Outpatient (CLI) | payer BC ==
--- NOTE | 2024-02-24 10:30 | US ---
EXAMINATION TYPE: US abdomen complete DATE OF EXAM: 02/24/2024 COMPARISON: CT: 12/17/23 CLINICAL INDICATION: Female, 33 years old with history of R10.10 UPPER ABDOMINAL PAIN, UNSPECIFIED; N ausea. 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 FINDINGS: EXAM MEASUREMENTS: Liver Length: 12.7 cm Gallbladder Wall: 0.15 cm CBD: 0.25 cm, color Doppler imaging was utilized to isolate the common bile duct for measurement. Spleen: 11.3 cm Right Kidney: 10.8 x 5.1 x 3.9cm Left Kidney: 10.4 x 5.0 x 5.2 cm Pancreas: wnl Liver: wnl Gallbladder: wnl Evidence for sonographic Berman's sign: No CBD: wnl Spleen: wnl Right Kidney: wnl Left Kidney: Hypoechoic avascular area seen sup/mid pole measuring 2.1 x 3.0 x 2.0cm Upper IVC: wnl Abd Aorta: wnl The liver is homogenous. The intrahepatic portion of the IVC and proximal abdominal aorta are within normal limits. There is no evidence of cholelithiasis. Common bile duct is unremarkable. The visu alized portions of the pancreas are homogenous. The spleen is unremarkable. Kidneys are symmetric a nd free of hydronephrosis. No renal lesions are seen. IMPRESSION: 1. No evidence for acute process. 2. Left renal cyst. [facility], , 02/24/2024 10:28 AM
[2024-02-24 15:58] LABS: Basophils # (A) 0.02 X 10*3/uL (0.00-0.10); Basophils % (A) 0.3 %; Eosinophils # (A) 0.03 X 10*3/uL (0.04-0.35); Eosinophils % (A) 0.5 %; HCT 42.3 % (37.2-46.3); HGB 14.3 g/dL (12.0-15.0); Lymphocytes % (A) 33.6 %; MCH 31.4 pg (27.0-32.0); MCHC 33.8 g/dL (32.0-37.0); Mean Platelet Volume 8.6 FL (9.5-12.2); Monocytes # (A) 0.38 X 10*3/uL (0.20-1.00); Monocytes % (A) 6.4 %; NRBC Per 100 WBC 0 X 10*3/uL (0.00-0.01); Neutrophils # (A) 3.52 X 10*3/uL (1.80-7.70); Platelet Count 318 X 10*3/uL (140-440); RBC 4.55 X 10*6/uL (4.10-5.20); RDW 12.1 % (11.5-14.5); WBC 5.96 X 10*3/uL (4.50-10.00)
[2024-02-24 16:07] LABS: ALT 14 U/L (8-44); AST 22 U/L (13-35); Albumin 4.9 g/dL (3.8-4.9); Albumin/Globulin Ratio 2.23 Ratio (1.60-3.17); Alkaline Phosphatase 73 U/L (41-126); BUN/Creat Ratio 12.55 Ratio (12.00-20.00); Blood Urea Nitrogen 13.8 mg/dL (9.0-27.0); Calcium 9.6 mg/dL (8.7-10.3); Carbon Dioxide 25.3 mmol/L (21.6-31.8); Chloride 103 mmol/L (96-109); Globulin 2.2 g/dL (1.6-3.3); Glucose 83 mg/dL (70-110); Potassium 4.4 mmol/L (3.5-5.5); Sodium 139 mmol/L (135-145); Total Bilirubin 0.6 mg/dL (0.3-1.2); Total Protein 7.1 g/dL (6.2-8.2)
== END | disposition home or self-care (01) ==
LOC: RADUSWWP 09:29
PROVIDERS: ATTEND Family Medicine
DX: N18.2 Chronic kidney disease, stage 2 (mild) (principal); R63.4 Abnormal weight loss; N28.1 Cyst of kidney, acquired; Z90.5 Acquired absence of kidney; Z85.528 Personal history of other malignant neoplasm of kidney
CPT/HCPCS: 76700; 80053; 82024; 84443; 85025

== ENCOUNTER → 2024-10-24 | Outpatient (CLI) | payer BC ==
--- NOTE | 2024-10-24 14:31 | USB ---
Reason for Exam: Clinical finding. Patient History: Menarche at age 15. First Full-Term at age 23. Premenopausal. Patient has history of breast feeding. Other cancer, age 31. Patient tested for BRCA1 outcome was negative. Patient tested for BRCA2 outcome was negative. Currently using Hormonal Contraceptives, starting at age 31. Maternal aunt (gr) had breast cancer at or over age 50. Technique: Method: Targeted. Findings: The area of palpable concern of the left breast, the axilla of the left breast and the retroareolar of the left breast were scanned. No solid or cystic masses are identified.. Overall Assessment: Negative, BI-RAD 1 Management: Screening Mammogram of both breasts at age 41. A clinical breast exam by your physician is recommended on an annual basis and results should be correlated with mammographic findings. This exam should not preclude additional follow-up of suspicious palpable abnormalities. Results were given to the patient verbally at the time of exam. [facility], , 10/24/2024 2:28 PM. Electronically signed and approved by: Braeden Marino M.D. Radiologis
--- NOTE | 2024-10-24 14:32 | MM ---
Reason for Exam: Clinical finding. Baseline mammogram. Indicated Problems: Palpable abnormality of the left side for 1 Month(s). Patient History: Menarche at age 15. First Full-Term at age 23. Premenopausal. Patient has history of breast feeding. Other cancer, age 31. Patient tested for BRCA1 outcome was negative. Patient tested for BRCA2 outcome was negative. Currently using Hormonal Contraceptives, starting at age 31. Maternal aunt (gr) had breast cancer at or over age 50. Last menstrual period: 10/06/2024 Prior Study Comparison: Patient's first Mammogram. Tissue Density: The breasts are heterogeneously dense, which may obscure small masses. Findings: Analyzed By CAD. No distinct mass or distortion of the cervical concern. Ultrasound is recommended. No suspicious microcalcifications seen. Overall Assessment: Incomplete: need additional imaging evaluation, BI-RAD 0 Management: Diagnostic Breast Ultrasound of the left breast. . Results were given to the patient verbally at the time of exam. Patient should continue monthly self-breast exams. A clinical breast exam by your physician is recommended on an annual basis. This exam should not preclude additional follow-up of suspicious palpable abnormalities. Note on Sophia scores and lifetime risk: 1. A Sophia score greater than 3% is considered moderate risk. If this is the case, consider specialist referral to assess eligibility for a risk reducing agent. 2. If overall lifetime risk for the development of breast cancer is 20% or higher, the patient may qualify for future screening with alternating mammogram and breast MRI. [facility], , 10/24/2024 2:29 PM. Electronically signed and approved by: Braeden Marino M.D. Radiologis
== END | disposition home or self-care (01) ==
LOC: RADMAMWWP 13:14
PROVIDERS: ATTEND Obstetrics & Gynecology
DX: R92.333 Mammographic heterogeneous density, bilateral breasts (principal); N63.0 Unspecified lump in unspecified breast; Z80.3 Family history of malignant neoplasm of breast; Z92.0 Personal history of contraception
CPT/HCPCS: 77062; 77066